=== PATIENT | female | born 1950 | race Caucasian/White ===

== ENCOUNTER 2019-06-21 09:09 | Emergency (ER) | payer SELFPAY ==
[~2019-06-21] VITALS: Ht 160 cm; Wt 106.8 kg
[2019-06-21 09:11] VITALS: Ht 160 cm; Wt 106.8 kg
[2019-06-21 09:42] LABS: APPEARANCE CLOUDY (CLEAR); BILIRUBIN NEGATIVE (NEGATIVE); COLOR YELLOW (YELLOW); GLUCOSE NEGATIVE (NEGATIVE); KETONE NEGATIVE (NEGATIVE); NITRITE POSITIVE (NEGATIVE); PROTEIN 1+ mg/dL (NEGATIVE); UROBILINOGEN NORMAL (NORMAL)
[2019-06-21 09:49] LABS: BACTERIA MANY /hpf (NEGATIVE); EPITHELIAL CELLS 0-5 /hpf (0-5); WHITE CELLS - URINE >50 /hpf (NEGATIVE)
[2019-06-21] MEDS ORDERED: OMNICEF300 MG PO (10:01)
[2019-06-21] MEDS ORDERED: HYDROCODON-ACE1 EAC7 PO (10:06)
[2019-06-21 10:23] VITALS: BP 114/62
== END 2019-06-21 10:23 | disposition home or self-care (01) ==
LOC: D.ER 09:09
PROVIDERS: Family Medicine
DX: N39.0 Urinary tract infection, site not specified (principal); I10 Essential (primary) hypertension; E11.9 Type 2 diabetes mellitus without complications; J44.9 Chronic obstructive pulmonary disease, unspecified

== ENCOUNTER 2019-12-14 20:50 | Inpatient (IN) | payer MEDICARE, MEDICAID ==
[~2019-12-14] VITALS: Ht 160 cm; Wt 113.4 kg
[~2019-12-14 20:50] MED LIST: HYDROCODON-ACE1 EAC7 PO; OMNICEF300 MG PO
[2019-12-14] MEDS ORDERED: ZESTRIL40 MG PO (20:56)
[2019-12-14] MEDS ORDERED: BAYER CHEWABLE81 MG PO (20:56)
[2019-12-14] MEDS ORDERED: SYNTHROID50 MCG PO (20:56)
[2019-12-14] MEDS ORDERED: PLAVIX75 MG (20:57)
[2019-12-14] MEDS ORDERED: NORVASC10 MG PO (20:57)
[2019-12-14] MEDS ORDERED: LIPITOR80 MG PO (20:57)
--- NOTE | 2019-12-14 21:24 | NUR ---
PT INCONTINENT OF URINE. HAS FOUL SMELL TO URINE. PT CLEANSED. IN AND OUT CATH OBTAINED. NEW DIAPER APPLIED. CT HERE TO TAKE PATIENT FOR CT HEAD.
[2019-12-14 22:02] LABS: BILIRUBIN NEGATIVE (NEGATIVE); GLUCOSE 50 mg/dL (NEGATIVE); KETONE NEGATIVE (NEGATIVE); NITRITE NEGATIVE (NEGATIVE); SPECIFIC GRAVITY 1.015 (1.005-1.020); UROBILINOGEN NORMAL (NORMAL)
[2019-12-14 22:02] LABS: BASOPHILS 0.2 % (0-2); EOSINOPHILS 0.6 % (0-7); HEMATOCRIT 41.3 % (36.0-48.0); HEMOGLOBIN 14.1 g/dL (12-16); IMMATURE GRANULOCYTES 0.3 % (0-5); LYMPHOCYTES 17.2 % (15-50); MCH 31.3 pg (26.0-34.0); MCHC 34.1 g/dL (31.0-37.0); MCV 91.8 fL (80.0-100.0); MEAN PLATELET VOLUME 9.5 fL (7.4-10.4); MONOCYTES 5.6 % (2-11); NEUTROPHILS 76.1 % (40-80); PLATELET COUNT 215 10x3/uL (130-400); RDW 13.3 % (11.5-14.5); WBC 12.5 10x3/uL (4.8-10.8)
[2019-12-14 22:04] LABS: AMORPHOUS SEDIMENT <1+ /lpf (NONE SEEN); BACTERIA MODERATE /hpf (NEGATIVE); EPITHELIAL CELLS 0-5 /hpf (0-5); RED CELLS - URINE 0-5 /hpf (0-5)
[2019-12-14 22:10] LABS: CALC OSMOLALITY 281 mosm/kg (275-300); CALCIUM 8.9 mg/dL (8.5-10.1); CARBON DIOXIDE 27.6 mmol/L (21.0-32.0); CHLORIDE - SERUM 106 mmol/L (98-107); CREATININE - SERUM 0.8 mg/dL (0.6-1.3); GLUCOSE 195 mg/dL (74-106); POTASSIUM - SERUM 3.8 mmol/L (3.5-5.1); SODIUM 139 mmol/L (136-145); UREA NITROGEN 11 mg/dL (7-18); eGFR NON AFRICAN AMERICAN 76 mL/min (90-120)
[2019-12-14 22:19] LABS: ALKALINE PHOSPHATASE 83 U/L (30-120); ALT (SGPT) 16 U/L (10-68); BILIRUBIN - TOTAL 0.35 mg/dL (0.2-1.3); CREATINE KINASE 43 UL (21-215); PROTEIN - SERUM 6.9 g/dL (6.4-8.2); TROPONIN-I < 0.017 ng/mL (0.000-0.060)
[2019-12-15] VITALS: BP 135/73
--- NOTE | 2019-12-15 00:35 | NUR ---
REC'D PATIENT TO ROOM FROM ER. ASSISTED PATIENT TO BED AND CLEANED UP AFTER INCONTINENT EPISODE. PATIENT DENIES OTHER NEEDS AT THIS TIME. BED IN LOWEST POSITION AND CALL LIGHT WITHIN REACH. ENCOURAGED THE PATIENT TO CALL IF SHE HAS NEEDS. WILL CONTINUE TO CHEPE.
[2019-12-15 03:38] VITALS: BP 135/73; BMI 44.3
[2019-12-15 04:00] VITALS: BP 129/73
[2019-12-15 05:38] LABS: BASOPHILS 0.3 % (0-2); HEMATOCRIT 38.4 % (36.0-48.0); HEMOGLOBIN 12.7 g/dL (12-16); IMMATURE GRANULOCYTES 0.2 % (0-5); LYMPHOCYTES 30.2 % (15-50); MCH 30.8 pg (26.0-34.0); MCHC 33.1 g/dL (31.0-37.0); MEAN PLATELET VOLUME 9.5 fL (7.4-10.4); MONOCYTES 6.4 % (2-11); NEUTROPHILS 61.9 % (40-80); PLATELET COUNT 239 10x3/uL (130-400); RBC 4.13 10x6/uL (4.00-5.40); RDW 13.6 % (11.5-14.5); WBC 11.9 10x3/uL (4.8-10.8)
[2019-12-15 06:00] LABS: ALBUMIN 2.6 g/dL (3.4-5.0); ALKALINE PHOSPHATASE 73 U/L (30-120); ALT (SGPT) 14 U/L (10-68); BILIRUBIN - TOTAL 0.24 mg/dL (0.2-1.3); CALCIUM 8.2 mg/dL (8.5-10.1); CARBON DIOXIDE 25.4 mmol/L (21.0-32.0); CHLORIDE - SERUM 108 mmol/L (98-107); CREATININE - SERUM 0.7 mg/dL (0.6-1.3); POTASSIUM - SERUM 3.3 mmol/L (3.5-5.1); PROTEIN - SERUM 6.1 g/dL (6.4-8.2); SODIUM 140 mmol/L (136-145); UREA NITROGEN 12 mg/dL (7-18); eGFR NON AFRICAN AMERICAN 88 mL/min (90-120)
[2019-12-15 06:02] LABS: CALC OSMOLALITY 281 mosm/kg (275-300); GLUCOSE 145 mg/dL (74-106)
[2019-12-15 08:26] VITALS: BP 128/75
--- NOTE | 2019-12-15 10:39 | NUR ---
PT ALERT X 4. BREATH SOUNDS CLEAR BILAT. TELEMETRY IN PLACE. IV TO RIGHT WRIST, PATENT, DRESSING CDI. TRACE EDEMA TO LEFT LEG, +1 TO RIGHT LEG. PUREWICK IN USE, URINE CLOUDY AND YELLOW, WITH STRONG ODOR. LEFT SIDED WEAKNESS. PT REPORTING NO PAIN AT THIS TIME. BED LOW, CALL LIGHT IN REACH. NO OTHER NEEDS AT THIS TIME.
[2019-12-15 16:05] VITALS: BP 131/75
--- NOTE | 2019-12-15 19:49 | NUR ---
AWAKE,ALERT.NO COMPLAITNS VOICED. REFUSED INSULIN FOR FSBS 161.IV TO RIGHT WRIST INTACT WITHOUT REDNESS OR EDEMA NOTED. CL IN REACH
[2019-12-15 19:52] VITALS: BP 132/78
[2019-12-16] VITALS: BP 132/75
[2019-12-16 04:00] VITALS: BP 123/79
[2019-12-16 05:25] LABS: BASOPHILS 0.3 % (0-2); EOSINOPHILS 2.5 % (0-7); HEMATOCRIT 38.6 % (36.0-48.0); HEMOGLOBIN 12.8 g/dL (12-16); IMMATURE GRANULOCYTES 0.1 % (0-5); LYMPHOCYTES 44.6 % (15-50); MCH 31.1 pg (26.0-34.0); MCHC 33.2 g/dL (31.0-37.0); MCV 93.7 fL (80.0-100.0); MEAN PLATELET VOLUME 9.5 fL (7.4-10.4); MONOCYTES 5.8 % (2-11); NEUTROPHILS 46.7 % (40-80); PLATELET COUNT 231 10x3/uL (130-400); RBC 4.12 10x6/uL (4.00-5.40); RDW 13.7 % (11.5-14.5)
[2019-12-16 05:33] LABS: WBC 8.9 10x3/uL (4.8-10.8)
[2019-12-16 06:04] LABS: ALBUMIN 2.6 g/dL (3.4-5.0); ALKALINE PHOSPHATASE 73 U/L (30-120); ALT (SGPT) 14 U/L (10-68); BILIRUBIN - TOTAL 0.29 mg/dL (0.2-1.3); CALC OSMOLALITY 278 mosm/kg (275-300); CALCIUM 8.2 mg/dL (8.5-10.1); CARBON DIOXIDE 24.2 mmol/L (21.0-32.0); CHLORIDE - SERUM 108 mmol/L (98-107); CREATININE - SERUM 0.7 mg/dL (0.6-1.3); GLUCOSE 115 mg/dL (74-106); PROTEIN - SERUM 6.2 g/dL (6.4-8.2); SODIUM 139 mmol/L (136-145); UREA NITROGEN 12 mg/dL (7-18); eGFR NON AFRICAN AMERICAN 88 mL/min (90-120)
[2019-12-16 06:05] LABS: POTASSIUM - SERUM 4.3 mmol/L (3.5-5.1)
--- NOTE | 2019-12-16 07:56 | NUR ---
PT LYING IN BED RESTING, NO S/SX OF DISTRESS, CL IN REACH, IV TO LT WRIST PATENT, BED IN LOWEST POSITION CONTINUE WITH PLAN OF CARE
[2019-12-16 08:53] VITALS: BP 136/82
[2019-12-16 12:13] VITALS: BP 139/83
[2019-12-16 13:22] VITALS: Ht 160 cm; Wt 113.4 kg
[2019-12-16 16:58] VITALS: BP 133/78
[2019-12-16 20:00] VITALS: BP 125/79
--- NOTE | 2019-12-16 20:00 | NUR ---
ALERT RESTING IN BED, DENIES PAIN OR NEEDS AT THIS TIME, CALL LIGHT IN REACH
[2019-12-17] VITALS: BP 128/74
[2019-12-17 04:00] VITALS: BP 123/75
[2019-12-17 05:31] LABS: BASOPHILS 0.5 % (0-2); EOSINOPHILS 2.2 % (0-7); HEMATOCRIT 42.9 % (36.0-48.0); HEMOGLOBIN 14.1 g/dL (12-16); IMMATURE GRANULOCYTES 0.2 % (0-5); LYMPHOCYTES 33.5 % (15-50); MCH 30.8 pg (26.0-34.0); MCHC 32.9 g/dL (31.0-37.0); MCV 93.7 fL (80.0-100.0); MEAN PLATELET VOLUME 9.5 fL (7.4-10.4); NEUTROPHILS 57.6 % (40-80); PLATELET COUNT 272 10x3/uL (130-400); RBC 4.58 10x6/uL (4.00-5.40); RDW 13.8 % (11.5-14.5); WBC 10.2 10x3/uL (4.8-10.8)
[2019-12-17 05:49] LABS: ANION GAP 13.1 mmol/L (8-16); BILIRUBIN - TOTAL 0.41 mg/dL (0.2-1.3); CALCIUM 8.3 mg/dL (8.5-10.1); CARBON DIOXIDE 25.4 mmol/L (21.0-32.0); POTASSIUM - SERUM 4.5 mmol/L (3.5-5.1); PROTEIN - SERUM 6.6 g/dL (6.4-8.2)
[2019-12-17 05:52] LABS: CREATININE - SERUM 0.9 mg/dL (0.6-1.3)
[2019-12-17 07:37] VITALS: BP 142/78
--- NOTE | 2019-12-17 07:42 | NUR ---
ALERT AND ORIENTED. LUNGS CLEAR BILATERALLY. HEART SOUNDS S1 AND S2 HEARD IN ALL ZIEGLER. BOWEL SOUNDS ACTIVE X 4. MILD REDNESS NOTED TO ABD FOLDS. IV TO RIGHT WRIST PATENT WITHOUT REDNESS. DENEIS NEEDS. BED LOW. CALL MUÑOZ AND PERSONAL ITEMS IN REACH. WILL CONTINUE TO MONITOR.
[2019-12-17] MEDS ORDERED: LEVOFLOXACIN500 MG PO (08:39)
[2019-12-17] MEDS ORDERED: DIFLUCAN100 MG PO (08:40)
--- NOTE | 2019-12-17 09:15 | MORECARE ---
CASE MANAGEMENT DISCHARGE SUMMARY PATIENT: SAPPHIRE RODRIGUEZ UNIT: [id number] ADM DATE: 12/17/19 AGE: 69 : 52 SEX: F ROOM/BED: D.2234 AUTHOR: SOCORRO REED PHYSICIAN: REFERRING PHYSICIAN: MESFIN ALBA MD DATE OF SERVICE: 12/17/19 Discharge Plan Patient Name: SAPPHIRE RODRIGUEZ Facility: [facility]:[place] : 1950 Planned Disposition: Home or Self Care Anticipated Discharge Date: Discharge Date: Expected LOS: Initial Reviewer: [email or web address] Initial Review Date: 12/14/2019 Generated: 12/17/19 10:14 am Comments DCP- Discharge Planning Updated by [id number]: Allyssa Boudreaux on 12/17/19 8:[address] Patient Name: SAPPHIRE RODRIGUEZ Admission Status: ER Accout number: [id number] Admission Date: 12-17-2019 : 1950 Admission Diagnosis: Attending: MALA Current LOS: 1 Anticipated DC Date: Planned Disposition: Home or Self Care Primary Insurance: [facility] MEDICARE HMO or PPO Discharge Planning Comments: CM met with patient to complete initial dc planning assessment. CM educated patient on the CM role and verbal consent given by patient to complete assessment. Patient lives at home with her son where he is her health and wellness coach. At discharge patient plans to return home and feels this is a safe discharge. CM discussed availability of home health, rehab services, and medical equipment. The patient states she is unsure of her MD, that I would need to talk to her son, Shivam. I attempted to call him, but he did not answer. The patient stated that Shivam is her health and wellness coach and helps her with everything. She has a walker and wheelchair along with a 4 prong cane. She is unsure of home health. IMM served and explained. copy given to her and other placed in chart. Patient denied known discharge needs at this time. CM will continue to follow and will assist as needed with dc plans/needs. Tinter Photograph: Allyssa Boudreaux DCP- Discharge Planning Updated by [id number]: Fartun Craft on 12/16/19 6:[address] LATE ENTRY 4/5/20 MCCOY EXPLAINED AND SIGNED 12/15/19 @ 1805 DCPIA - Discharge Planning Initial Assessment Updated by [email or web address]: Allyssa Boudreaux on 12/17/19 9:09 am * Is the patient Alert and Oriented? Yes * PCP [facility] * Pharmacy [facility]? * Preadmission Environment Home with Family * ADLs Partial Dependent * Partial ADLs (Assistance needed) Bathing Dressing Toileting * List name and contact numbers for known caregivers / representatives who currently or will assist patient after discharge: SHIVAM (SON) [phone] * Verbal permission to speak to the caregivers and representatives has been obtained from the patient. N/A * Community resources currently utilized None * Additional services required to return to the preadmission environment? No * Can the patient safely return to the preadmission environment? Yes * Has this patient been hospitalized within the prior 30 days at any hospital? No External Providers External Provider: [employer] Next Contact Date: Service Request Date: Service Type: Resolution: Reviewer: Comments: Coverage Notice Reviewer: [id number] Amelia Craft Notice Issued Date-Time: 12/15/2019 18:05 Notice Type: Medicare Outpatient Observation Notice Notice Delivered To: Patient Relationship to Patient: Self Airport Operations Specialist Name: Delivery Method: HAND - Hand Delivered Kylee Days: Prior Verbal Notification: Recipient Understood Notice: Yes Recipient Signature: Yes Med Rec Note Co-signed by Attending: Coverage Notice Comment: Reviewer: [id number] - Allyssa Boudreaux Notice Issued Date-Time: 12/17/2019 9:00 Notice Type: IM Discharge Notice Notice Delivered To: Patient Relationship to Patient: Airport Operations Specialist Name: Delivery Method: - Kylee Days: Prior Verbal Notification: Recipient Understood Notice: Recipient Signature: Med Rec Note Co-signed by Attending: Coverage Notice Comment: Patient Name: SAPPHIRE RODRIGUEZ Page [phone] at 0915 All edits/amendments must be made on the electronic document DICTATION DATE: 12/17/19913 VICE PRESIDENT OF CONTRACTS: AZAM 12/17/19913 RPT#: [id number] DC DATE: STATUS: ADM IN [facility] [address] [place] [address] END OF REPORT
--- NOTE | 2019-12-17 09:49 | NUR ---
ATTEMPTED TO CALL SON TO NOTIFY OF DC ORDER. MAN WHO ANSWERED WAS NOT EMILY KAMARA. ASKED PATIENT IF KNEW SON'S PHONE NUMBER AND STATES DOES NOT KNOW BUT "SHOULD BE ON FILE." NO OTHER NUMBER ON FILE. CASE MANAGMENT TREY NOTIFIED.
--- NOTE | 2019-12-17 11:15 | NUR ---
PATIENT REFUSED BLOOD SUGAR CHECK.
[2019-12-17 12:17] VITALS: BP 128/74
--- NOTE | 2019-12-17 12:29 | NUR ---
I TRIED TO CALL PATIENT SON (EMILY KAMARA) THAT IS LISTED IN CONTACTS AT [phone] AND THE NAME ON THE OTHER END FOR VOICE MAIL IS TATIANNA HALL.
--- NOTE | 2019-12-17 12:34 | NUR ---
I WENT INTO THE PATIENT ROOM (SHE IS IN THE CHAIR EATING LUNCH) AND ASKED HER IF SHE HAD HER SON'S NUMBER, A PHARMACY NAME OR NUMBER, AND WHO HER PRIMARY CARE DOCTOR IS. SHE SAID THAT SHE DIDN'T KNOW AND WOULD HAVE TO WAIT ON HER SON TO CALL HER.
--- NOTE | 2019-12-17 13:25 | NUR ---
SITTING IN CHAIR AT BEDSIDE. DENIES NEEDS. WILL CONTINUE TO MONITOR.
--- NOTE | 2019-12-17 13:27 | NUR ---
OT NOTE: BED MOB WITH MOD ASSIST; STATIC SITTING ON EOB WITH SPV; MAX ASSIST TO DEXTER SOCKS; SET UP TO BRUSH HAIR AND FACE; MIN ASSIST TO WASH HANDS. ABLE TO TRANSFER FROM BED TO CHAIR WITH MIN/MOD ASSIST. HALEIGH GRANADOS,OTR/L [phone]
--- NOTE | 2019-12-17 13:42 | MORECARE ---
CASE MANAGEMENT DISCHARGE SUMMARY PATIENT: SAPPHIRE RODRIGUEZ UNIT: [id number] ADM DATE: 12/17/19 AGE: 69 : 52 SEX: F ROOM/BED: D.2234 AUTHOR: SOCORRO REED PHYSICIAN: REFERRING PHYSICIAN: MESFIN ALBA MD DATE OF SERVICE: 12/17/19 Discharge Plan Patient Name: SAPPHIRE RODRIGUEZ Facility: [facility]:[place] : 1950 Planned Disposition: Home or Self Care Anticipated Discharge Date: Discharge Date: Expected LOS: Initial Reviewer: [email or web address] Initial Review Date: 12/14/2019 Generated: 12/17/19 2:42 pm Comments DCP- Discharge Planning Updated by [id number]: Allyssa Boudreaux on 12/17/19 8:[address] Patient Name: SAPPHIRE RODRIGUEZ Admission Status: ER Accout number: [id number] Admission Date: 12-17-2019 : 1950 Admission Diagnosis: Attending: MALA Current LOS: 1 Anticipated DC Date: Planned Disposition: Home or Self Care Primary Insurance: [facility] [place] HMO or PPO Discharge Planning Comments: CM met with patient to complete initial dc planning assessment. CM educated patient on the CM role and verbal consent given by patient to complete assessment. Patient lives at home with her son where he is her systems librarian. At discharge patient plans to return home and feels this is a safe discharge. CM discussed availability of home health, rehab services, and medical equipment. The patient states she is unsure of her MD, that I would need to talk to her son, Shivam. I attempted to call him, but he did not answer. The patient stated that Shivam is her systems librarian and helps her with everything. She has a walker and wheelchair along with a 4 prong cane. She is unsure of home health. IMM served and explained. copy given to her and other placed in chart. Patient denied known discharge needs at this time. CM will continue to follow and will assist as needed with dc plans/needs. Gold Letterer: Allyssa Boudreaux DCP- Discharge Planning Updated by [id number]: Fartun Craft on 12/16/19 6:[address] LATE ENTRY 4/5/20 MCCOY EXPLAINED AND SIGNED 12/15/19 @ 1805 DCPIA - Discharge Planning Initial Assessment Updated by [id number]: Allyssa Boudreaux on 12/17/19 9:09 am * Is the patient Alert and Oriented? Yes * PCP [facility] * Pharmacy [facility]? * Preadmission Environment Home with Family * ADLs Partial Dependent * Partial ADLs (Assistance needed) Bathing Dressing Toileting * List name and contact numbers for known caregivers / representatives who currently or will assist patient after discharge: SHIVAM (SON) [phone] * Verbal permission to speak to the caregivers and representatives has been obtained from the patient. N/A * Community resources currently utilized None * Additional services required to return to the preadmission environment? No * Can the patient safely return to the preadmission environment? Yes * Has this patient been hospitalized within the prior 30 days at any hospital? No External Providers External Provider: [facility] Next Contact Date: Service Request Date: Service Type: Resolution: Reviewer: Comments: Coverage Notice Reviewer: [id number] Amelia Craft Notice Issued Date-Time: 12/15/2019 18:05 Notice Type: Medicare Outpatient Observation Notice Notice Delivered To: Patient Relationship to Patient: Self Race Board Attendant Name: Delivery Method: HAND - Hand Delivered Kylee Days: Prior Verbal Notification: Recipient Understood Notice: Yes Recipient Signature: Yes Med Rec Note Co-signed by Attending: Coverage Notice Comment: Reviewer: [id number] - Allyssa Boudreaux Notice Issued Date-Time: 12/17/2019 9:00 Notice Type: IM Discharge Notice Notice Delivered To: Patient Relationship to Patient: Race Board Attendant Name: Delivery Method: HAND - Hand Delivered Kylee Days: Prior Verbal Notification: Recipient Understood Notice: Yes Recipient Signature: Yes Med Rec Note Co-signed by Attending: Coverage Notice Comment: Last DP export: 12/17/19 8:15 am Patient Name: SAPPHIRE RODRIGUEZ Page [phone] at 1342 All edits/amendments must be made on the electronic document DICTATION DATE: 12/17/19 1342 FOREST ECONOMICS PROFESSOR: AZAM 12/17/19 1342 RPT#: [id number] DC DATE: STATUS: ADM IN [facility] [address] [place] [id number] END OF REPORT
--- NOTE | 2019-12-17 13:49 | MORECARE ---
CASE MANAGEMENT DISCHARGE SUMMARY PATIENT: SAPPHIRE RODRIGUEZ UNIT: [id number] ADM DATE: 12/17/19 AGE: 69 : 52 SEX: F ROOM/BED: D.2234 AUTHOR: SOCORRO REED PHYSICIAN: REFERRING PHYSICIAN: MESFIN ALBA MD DATE OF SERVICE: 12/17/19 Discharge Plan Patient Name: SAPPHIRE RODRIGUEZ Facility: [facility]:[place] : 1950 Planned Disposition: Home or Self Care Anticipated Discharge Date: Discharge Date: Expected LOS: Initial Reviewer: [id number] Initial Review Date: 12/14/2019 Generated: 12/17/19 2:49 pm Comments DCP- Discharge Planning Updated by [id number]: Allyssa Boudreaux on 12/17/19 12:[address] SPOKE WITH PATIENT'S SON SHIVAM ABOUT ANY NEEDS THAT THEY MIGHT NEEDS AT HOME. HE ASKED IF SHE COULD HAVE A TRANSFER BENCH FOR HER TO SHOWER. I ORDERED ONE FROM [employer], THAT IS WHERE SHE GETS HER SUPPLIES RIGHT NOW. I SPOKE WITH LAURA AT [facility] DCP- Discharge Planning Updated by [id number]: Allyssa Boudreaux on 12/17/19 8:[address] Patient Name: SAPPHIRE RODRIGUEZ Admission Status: ER Accout number: [id number] Admission Date: 12-17-2019 : 1950 Admission Diagnosis: Attending: MALA Current LOS: 1 Anticipated DC Date: Planned Disposition: Home or Self Care Primary Insurance: [facility] MEDICARE HMO or PPO Discharge Planning Comments: CM met with patient to complete initial dc planning assessment. CM educated patient on the CM role and verbal consent given by patient to complete assessment. Patient lives at home with her son where he is her merchandise executive. At discharge patient plans to return home and feels this is a safe discharge. CM discussed availability of home health, rehab services, and medical equipment. The patient states she is unsure of her MD, that I would need to talk to her son, Shivam. I attempted to call him, but he did not answer. The patient stated that Shivam is her merchandise executive and helps her with everything. She has a walker and wheelchair along with a 4 prong cane. She is unsure of home health. IMM served and explained. copy given to her and other placed in chart. Patient denied known discharge needs at this time. CM will continue to follow and will assist as needed with dc plans/needs. Velocity Shooter: Allyssa Boudreaux DCP- Discharge Planning Updated by [id number]: Fartun Craft on 12/16/19 6:[address] LATE ENTRY 12/15/19 MCCOY EXPLAINED AND SIGNED 12/15/19 @ 1805 DCPIA - Discharge Planning Initial Assessment Updated by [id number]: Allyssa Boudreaux on 12/17/19 9:09 am * Is the patient Alert and Oriented? Yes * PCP [facility] * Pharmacy [facility]? * Preadmission Environment Home with Family * ADLs Partial Dependent * Partial ADLs (Assistance needed) Bathing Dressing Toileting * List name and contact numbers for known caregivers / representatives who currently or will assist patient after discharge: SHIVAM (SON) [phone] * Verbal permission to speak to the caregivers and representatives has been obtained from the patient. N/A * Community resources currently utilized None * Additional services required to return to the preadmission environment? No * Can the patient safely return to the preadmission environment? Yes * Has this patient been hospitalized within the prior 30 days at any hospital? No Coverage Notice Reviewer: [id number] - Fartun Craft Notice Issued Date-Time: 12/15/2019 18:05 Notice Type: Medicare Outpatient Observation Notice Notice Delivered To: Patient Relationship to Patient: Self Office Services Coordinator Name: Delivery Method: HAND - Hand Delivered Kylee Days: Prior Verbal Notification: Recipient Understood Notice: Yes Recipient Signature: Yes Med Rec Note Co-signed by Attending: Coverage Notice Comment: Reviewer: [id number] - Allyssa Boudreaux Notice Issued Date-Time: 12/17/2019 9:00 Notice Type: IM Discharge Notice Notice Delivered To: Patient Relationship to Patient: Office Services Coordinator Name: Delivery Method: HAND - Hand Delivered Kylee Days: Prior Verbal Notification: Recipient Understood Notice: Yes Recipient Signature: Yes Med Rec Note Co-signed by Attending: Coverage Notice Comment: Last DP export: 12/17/19 12:42 pm Patient Name: SAPPHIRE RODRIGUEZ Page [phone] Electronically Signed by [facility] on 12/17/19 at 1349 All edits/amendments must be made on the electronic document DICTATION DATE: 12/17/191348 TAX COLLECTION COORDINATOR: AZAM 12/17/19 134 RPT#: [id number] DC DATE: STATUS: ADM IN [facility] [address] [place] [address] END OF REPORT
--- NOTE | 2019-12-17 14:00 | NUR ---
NAVNEET CALLED TO [facility] [address]. I CALLED AND SPOKE TO MELISSA-ROBERT.
--- NOTE | 2019-12-17 14:25 | NUR ---
DISCHARGE EDUCATION PROVIDED BOTH WRITTEN AND VERBAL. VERBALIZED UNDERSTANDING. IV REMOVED FROM RIGHT WRIST WITH TIP INTACT. PATIENT DENIES FURTHER NEEDS. SON CALLED AND STATES PARKED IN FRONT OF HOSPITAL. WILL GET PATIENT READY AND TAKE DOWN TO DISCHARGE.
--- NOTE | 2019-12-17 14:48 | NUR ---
PATIENT DISCHARGED HOME WITH SON WITH ALL BELONGINGS.
--- NOTE | 2019-12-17 15:55 | NUR ---
OT NOTE: (DOS 12/16/2019) PT COMPLETED SUPINE TO SIT WITH MOD/MAX A. PT COMPLETED SITTING BALANCE AT EOB WITH MIN A. PT COMPLETED HAIR GROOMING WIITH SET UP. PT COMPLETED FACE WASH WITH SET UP. [phone] THANK YOU,SKY SMITH
--- NOTE | 2019-12-17 16:49 | NUR ---
OT NOTE: PT COMPLETED SIT TO STAND WITH MOD A. PT COMPLETED STATIC STANDING WITH CGA FOR LB HYGIENE TASKS. PT COMPLETED RUE AROM EX. PT COMPLETED LUE AAROM. PT REFUSED TO TRANSFER TO BED. PT WANTED TO CONTINUE SITTING IN CHAIR. [phone] THANK YOU,SKY SMITH
--- NOTE | 2019-12-18 18:18 | MORECARE ---
CASE MANAGEMENT DISCHARGE SUMMARY PATIENT: SAPPHIRE RODRIGUEZ UNIT: [id number] ADM DATE: 12/17/19 AGE: 69 : 52 SEX: F ROOM/BED: D.2234 AUTHOR: BRIANNADOC PHYSICIAN: REFERRING PHYSICIAN: MESFIN ALBA MD DATE OF SERVICE: 12/18/19 Discharge Plan Patient Name: SAPPHIRE RODRIGUEZ Facility: [facility]:[place] : 1950 Planned Disposition: Home or Self Care Anticipated Discharge Date: Discharge Date: 12/17/2019 Expected LOS: 0 Initial Reviewer: [email or web address] Initial Review Date: 12/14/2019 Generated: 12/18/19 7:17 pm Comments DCP- Discharge Planning Updated by [id number]: Allyssa Boudreaux on 12/17/19 12:[address] SPOKE WITH PATIENT'S SON SHIVAM ABOUT ANY NEEDS THAT THEY MIGHT NEEDS AT HOME. HE ASKED IF SHE COULD HAVE A TRANSFER BENCH FOR HER TO SHOWER. I ORDERED ONE FROM [employer], THAT IS WHERE SHE GETS HER SUPPLIES RIGHT NOW. I SPOKE WITH LAURA AT [facility] DCP- Discharge Planning Updated by [id number]: Allyssa Boudreaux on 12/17/19 8:[address] Patient Name: SAPPHIRE RODRIGUEZ Admission Status: ER Accout number: [id number] Admission Date: 12-17-2019 : 1950 Admission Diagnosis: Attending: MALA Current LOS: 1 Anticipated DC Date: Planned Disposition: Home or Self Care Primary Insurance: [facility] [place] or PPO Discharge Planning Comments: CM met with patient to complete initial dc planning assessment. CM educated patient on the CM role and verbal consent given by patient to complete assessment. Patient lives at home with her son where he is her alternative energy technician. At discharge patient plans to return home and feels this is a safe discharge. CM discussed availability of home health, rehab services, and medical equipment. The patient states she is unsure of her MD, that I would need to talk to her son, Shivam. I attempted to call him, but he did not answer. The patient stated that Shivam is her alternative energy technician and helps her with everything. She has a walker and wheelchair along with a 4 prong cane. She is unsure of home health. IMM served and explained. copy given to her and other placed in chart. Patient denied known discharge needs at this time. CM will continue to follow and will assist as needed with dc plans/needs. Microwave Engineer: Allyssa Boudreaux DCP- Discharge Planning Updated by [id number]: Fartun Craft on 12/16/19 6:[address] LATE ENTRY 12/15/19 MCCOY EXPLAINED AND SIGNED 12/15/19 @ 1805 DCPIA - Discharge Planning Initial Assessment Updated by [email or web address]: Allyssa Boudreaux on 12/17/19 9:09 am * Is the patient Alert and Oriented? Yes * PCP [facility] * Pharmacy [facility]? * Preadmission Environment Home with Family * ADLs Partial Dependent * Partial ADLs (Assistance needed) Bathing Dressing Toileting * List name and contact numbers for known caregivers / representatives who currently or will assist patient after discharge: SHIVAM (SON) [phone] * Verbal permission to speak to the caregivers and representatives has been obtained from the patient. N/A * Community resources currently utilized None * Additional services required to return to the preadmission environment? No * Can the patient safely return to the preadmission environment? Yes * Has this patient been hospitalized within the prior 30 days at any hospital? No Coverage Notice Reviewer: [id number] - Fartun Luana Notice Issued Date-Time: 12/15/2019 18:05 Notice Type: Medicare Outpatient Observation Notice Notice Delivered To: Patient Relationship to Patient: Self Audiometric Technician Name: Delivery Method: HAND - Hand Delivered Kylee Days: Prior Verbal Notification: Recipient Understood Notice: Yes Recipient Signature: Yes Med Rec Note Co-signed by Attending: Coverage Notice Comment: Reviewer: [id number] - Allyssa Boudreaux Notice Issued Date-Time: 12/17/2019 9:00 Notice Type: IM Discharge Notice Notice Delivered To: Patient Relationship to Patient: Audiometric Technician Name: Delivery Method: HAND - Hand Delivered Yklee Days: Prior Verbal Notification: Recipient Understood Notice: Yes Recipient Signature: Yes Med Rec Note Co-signed by Attending: Coverage Notice Comment: Last DP export: 12/17/19 12:49 pm Patient Name: SAPPHIRE RODRIGUEZ Page 21268 at 1818 All edits/amendments must be made on the electronic document DICTATION DATE: 12/18/191816 RIBBON LAPPER TENDER: AZAM 12/18/191816 RPT#: [id number] DC DATE:12/17/19 STATUS: DIS IN [facility] [address] [place] [address] END OF REPORT
== END 2019-12-17 14:48 | disposition home or self-care (01) | DRG 689 ==
LOC: D.ER 20:50 → OBSVTIME 22:17 → D.MS 22:17
PROVIDERS: Family Medicine; ADMIT Family Medicine; ATTEND Family Medicine
DX: N39.0 Urinary tract infection, site not specified (principal); G92 Toxic encephalopathy; I69.351 Hemiplegia and hemiparesis following cerebral infarction affecting right dominant side; S00.93XA Contusion of unspecified part of head, initial encounter; E66.9 Obesity, unspecified; I10 Essential (primary) hypertension; W19.XXXA Unspecified fall, initial encounter